=== PATIENT | female | born 1995 | race Caucasian/White ===

== ENCOUNTER 2019-05-29 10:59 | Emergency (ER) | payer OTHER ==
[~2019-05-29] VITALS: Ht 170.2 cm; Wt 68.2 kg
[2019-05-29] MEDS ORDERED: LIDOCAINE 2% MDV 20 ML VIAL SC ONE (11:30)
[2019-05-29 12:15] VITALS: BP 120/58
== END 2019-05-29 12:22 | disposition home or self-care (01) ==
LOC: M ED 10:59
DX: S61.211A Laceration without foreign body of left index finger without damage to nail, initial encounter (principal); W27.0XXA Contact with workbench tool, initial encounter; Y92.69 Other specified industrial and construction area as the place of occurrence of the external cause; J30.2 Other seasonal allergic rhinitis